=== PATIENT | female | born 1985 | race American Indian/Alaskan Native ===

== ENCOUNTER 2016-12-17 14:50 | Emergency (ER) | payer OTHER ==
[2016-12-17 17:15] LABS: Eosinophils % (Auto) 1.2 % (0.0-4.3); Hematocrit 36.2 % (30.3-42.9); Hemoglobin 11.8 gm/dl (10.1-14.3); Mean Corpuscular HGB Conc 33 % (30-34); Mean Corpuscular Hemoglobin 28 pg (28-32); Mean Corpuscular Volume 88 fl (79-97); Platelet Count 258 K/mm3 (140-440); Red Blood Count 4.14 M/mm3 (3.65-5.03); Red Cell Distribution Width 16.3 % (13.2-15.2); White Blood Count 7.7 K/mm3 (4.5-11.0)
[2016-12-17 17:31] LABS: Alanine Aminotransferase 11 units/L (7-56); Albumin 4.1 g/dL (3.9-5); Albumin/Globulin Ratio 1.3 %; Alkaline Phosphatase 44 units/L (35-129); Anion Gap 17 mmol/L; BUN/Creatinine Ratio 23.33; Bilirubin,Total < 0.2 mg/dL (0.1-1.2); Blood Urea Nitrogen 7 mg/dL (7-17); Calcium 8.7 mg/dL (8.4-10.2); Carbon Dioxide 25 mmol/L (22-30); Chloride 102.4 mmol/L (98-107); Glucose 95 mg/dL (65-100); Lipase 29 units/L (13-60); Potassium 4.4 mmol/L (3.6-5.0); Sodium 140 mmol/L (137-145); Total Protein 7.3 g/dL (6.3-8.2)
[2016-12-17 19:10] LABS: Bacteria,Urine 1+ /HPF (Negative); Bilirubin,Urine NEG (Negative); Blood,Urine NEG (Negative); Ketones,Urine NEG (Negative); Leukocyte Esterase,Urine NEG (Negative); Mucus,Urine 3+ /HPF; Nitrite,Urine NEG (Negative); Protein,Urine <15 mg/dL mg/dL (Negative); Urobilinogen,Urine < 2.0 mg/dL (<2.0)
[2016-12-17] MEDS ORDERED: ZOFRAN IM ONE (23:05)
[2016-12-17] MEDS ORDERED: MORPHINE IM ONE (23:05)
--- NOTE | 2016-12-17 23:09 | Emergency Department Report ---
HPI - General Chief Complaint: Abdominal Pain Time Seen by Provider: 12/17/16 22:57 - HPI HPI: Room 17 The patient is a 31-year-old female presenting with a chief complaint of abdominal pain and back pain. The patient states for several weeks she has had low back pain exacerbated with movement. The patient states for the past 3 days she has had a constant right lower quadrant abdominal pain that is occasionally periumbilical. The patient describes the pain as sharp and burning in nature. Patient denies nausea vomiting or diarrhea. Patient denies dysuria, hematuria, vaginal discharge or abnormal vaginal bleeding. The patient states her LMP occurred 12/04/2016 and was within normal limits (normal time). Patient denies any history of fever. The patient states now she mostly has back pain with slight abdominal pain. The patient gives her pain a score of 8/10 Location: [see above] Duration: [see above] Quality: Sharp/burning Severity: 8/10 Modifying factors: Movement increases pain of the back Context: [see above] Mode of transportation: [not driving] ED Past Medical Hx - Past Medical History Additional medical history: Hx of constipation - Surgical History Hx Appendectomy: Yes - Family History Family history: no significant - Social History Smoking Status: Current Every Day Smoker (occasional) Substance Use Type: None (denies illicit drug use), Alcohol (occasional) - Medications Home Medications: Home Medications Medication Instructions Recorded Confirmed Last Taken Type Ibuprofen [Motrin] 800 mg PO Q8H PRN #20 tablet 05/18/14 Unknown Rx traMADol [Ultram] 50 mg PO Q6HR PRN #14 tablet 12/18/16 Unknown Rx ED Review of Systems ROS: Stated complaint: LOWER BACK/ABD PAIN Other details as noted in HPI Comment: All other systems reviewed and negative Constitutional: denies: chills, fever Eyes: denies: eye pain, eye discharge, vision change ENT: denies: ear pain, throat pain Respiratory: denies: cough, shortness of breath, wheezing Cardiovascular: denies: chest pain, palpitations Gastrointestinal: abdominal pain. denies: nausea, vomiting, diarrhea Genitourinary: denies: urgency, dysuria, discharge Musculoskeletal: back pain Skin: denies: rash, lesions Neurological: denies: headache, weakness, paresthesias Psychiatric: denies: anxiety, depression Hematological/Lymphatic: denies: easy bleeding, easy bruising Physical Exam - Physical Exam Vital Signs: Vital Signs 12/17/16 12/17/16 12/17/16 16:27 22:58 22:59 Temperature 98.3 F Pulse Rate 82 65 Respiratory 18 16 16 Rate Blood Pressure 143/96 Blood Pressure 145/91 [Right] O2 Sat by Pulse 100 100 100 Oximetry Physical Exam: GENERAL: The patient is well-developed well-nourished female lying on stretcher not appear to be in acute distress. [] HEENT: Normocephalic. Atraumatic. Extraocular motions are intact. Patient has moist mucous membranes. NECK: Supple. Trachea midline CHEST/LUNGS: Clear to auscultation. There is no respiratory distress noted. HEART/CARDIOVASCULAR: Regular. There is no tachycardia. There is no gallop rub or murmur. ABDOMEN: Abdomen is soft, with mild discomfort to palpation in epigastric and right lower quadrant. There is no rebound or guarding. Patient has normal bowel sounds. There is no abdominal distention. SKIN: There is no rash. There is no edema. There is no diaphoresis. NEURO: The patient is awake, alert, and oriented. The patient is cooperative. The patient has normal speech MUSCULOSKELETAL: There is right CVA tenderness. There is no evidence of acute injury. ED Course Vital Signs 12/17/16 12/17/16 12/17/16 16:27 22:58 22:59 Temperature 98.3 F Pulse Rate 82 65 Respiratory 18 16 16 Rate Blood Pressure 143/96 Blood Pressure 145/91 [Right] O2 Sat by Pulse 100 100 100 Oximetry ED Medical Decision Making - Lab Data Result diagrams: 12/17/16 16:59 12/17/16 16:59 Laboratory Tests 12/17/16 12/17/16 12/17/16 16:59 16:59 18:29 WBC 7.7 RBC 4.14 Hgb 11.8 Hct 36.2 MCV 88 MCH 28 MCHC 33 RDW 16.3 H Plt Count 258 Lymph % (Auto) 20.7 Saline % (Auto) 5.1 Eos % (Auto) 1.2 Baso % (Auto) 1.0 Lymph # 1.6 Saline # 0.4 Eos # 0.1 Baso # 0.1 Seg Neutrophils % 72.0 H Seg Neutrophils # 5.5 Sodium 140 Potassium 4.4 Chloride 102.4 Carbon Dioxide 25 Anion Gap 17 BUN 7 Creatinine 0.3 L Estimated GFR > 60 BUN/Creatinine Ratio 23.33 Glucose 95 Calcium 8.7 Total Bilirubin < 0.2 AST 18 ALT 11 Alkaline Phosphatase 44 Total Protein 7.3 Albumin 4.1 Albumin/Globulin Ratio 1.3 Lipase 29 Urine Color Yellow Urine Turbidity Clear Urine pH 7.0 Ur Specific [place] 1.021 Urine Protein <15 mg/dl Urine Glucose (UA) Neg Urine Ketones Neg Urine Blood Neg Urine Nitrite Neg Urine Bilirubin Neg Urine Urobilinogen < 2.0 Ur Leukocyte Esterase Neg Urine WBC (Auto) 1.0 Urine RBC (Auto) 6.0 Urine Bacteria (Auto) 1+ Urine Mucus 3+ Urine HCG, Qual Negative - Radiology Data Radiology results: report reviewed (CT abdomen and pelvis), image reviewed (CT abdomen and pelvis) CT abdomen and pelvis (read by radiologist)- cholelithiasis. No joel inflammatory changes the gallbladder by CT. The patient is right upper quadrant pain, abdominal ultrasound may be of benefit for further evaluation. Large and small bowel loops normal caliber. Prior appendectomy. No other gross acute findings. - Differential Diagnosis ovarian cyst, renal colic, gastritis Critical care attestation.: If time is entered above; I have spent that time in minutes in the direct care of this critically ill patient, excluding procedure time. ED Disposition Clinical Impression: Abdominal pain, Symptomatic cholelithiasis Disposition: DISCHARGED TO HOME OR SELFCARE Is pt being admited?: No Does the pt Need Aspirin: No Condition: Stable Instructions: Abdominal Pain (ED), Biliary Colic (ED) Additional Instructions: Return to the emergency department immediately should you develop worsening symptoms, fever, inability to tolerate food or liquid or any other concerns. Prescriptions: traMADol [Ultram] 50 mg PO Q6HR PRN #14 tablet PRN Reason: Pain Referrals: PRIMARY CARE, [Primary Care Provider] - 3-5 Days ASHLEY ROGERS MD [Staff Physician] - 3-5 Days (Dr. Rogers is a ammonia still operator. Please follow up in for further evaluation) EVIE KNOX MD [Staff Physician] - 3-5 Days (Dr. Knox is a surgeon. Please follow up with him for further evaluation of your gallbladder) Time of Disposition: 00:32
--- NOTE | 2016-12-18 00:15 | Cat Scan Report ---
FINAL REPORT EXAM: CT ABDOMEN PELVIS WO CON HISTORY: RLQ abdominal pain, right CVA tenderness COMPARISON: CT abdomen pelvis April 2014. TECHNIQUE: Contiguous axial images were obtained. Additional sagittal and coronal reformatted images were obtained. FINDINGS: Mild atelectasis at the lung bases. Cholelithiasis. No joel inflammatory changes the gallbladder by CT. Liver, spleen, pancreas and adrenal glands are grossly unremarkable. No nephrolithiasis or hydronephrosis. Aorta and IVC are normal in caliber. No distal ureteral or urinary bladder calculi. Multiple pelvic phleboliths which appear to be separate from the distal ureters. Subcentimeter calcification within the uterus compatible small fibroid. Otherwise, uterus and ovaries are grossly unremarkable. No free fluid within the pelvis. Prior appendectomy. Large and small bowel loops are normal in caliber. Lumbar vertebral body heights are preserved. Bony pelvis is grossly intact. IMPRESSION: Cholelithiasis. No joel inflammatory changes the gallbladder by CT. If the patient has right upper quadrant pain, abdominal ultrasound may be of benefit for further evaluation. Large and small bowel loops normal in caliber. Prior appendectomy. No other gross acute findings.
[2016-12-18 01:36] VITALS: BP 138/88
== END 2016-12-18 01:44 | disposition home or self-care (01) ==
LOC: ED 14:50
DX: K80.20 Calculus of gallbladder without cholecystitis without obstruction (principal); R10.31 Right lower quadrant pain; F17.200 Nicotine dependence, unspecified, uncomplicated
CPT/HCPCS: 36415; 74176; 80053; 81001; 81025; 83690; 85025; 96372; 99284; J2270; J2405